=== PATIENT | male | born 2000 | race American Indian/Alaskan Native ===

== ENCOUNTER 2019-12-02 17:56 | Emergency (ER) | payer SELFPAY ==
[2019-12-02] MEDS ORDERED: TETRACAINE 0.5% OPHTH SOLN 4ML OU ONE (19:37)
[2019-12-02] MEDS ORDERED: FLUORESCEIN 1 MG STRIP OP ONE (19:38)
[2019-12-02] MEDS ORDERED: BALANCED SALT IRRIG (BSS) OPHTH SOLN 15 ML OU ONE (19:38)
--- NOTE | 2019-12-02 19:43 | Emergency Department Report ---
Eye Injury/Foreign Body - HPI Duration: Today Eye Location: Left Eye Symptoms: Eye Pain: Yes, Blurred Vision: Yes, Eye Redness: Yes, Photophobia: Yes Other History: 19-year-old -[place] male no acute distress nontoxic in appearance presents to the emergency room complaining of left eye pain that is a 7 out of 10. Patient states that he accidentally put glue in his eye. Patient states he went to grab eyedrops instead he grabbed glue. Patient states that he flushed his eye out with water. He reports this happened about 3 PM today. Patient aggravating factors are photophobia mild blurred vision. Alleviating factor nothing. Patient does have a past medical history of sickle cell disease. Patient reports he currently takes folate acid use he takes hydrocodone and ibuprofen but has been out of pain medication. Patient reports he does not have a primary care provider any further since he is no longer able to go to [facility]. Patient denies any known drug allergies. ED Review of Systems ROS: Stated complaint: GLUE IN EYE Other details as noted in HPI Comment: All other systems reviewed and negative Eyes: eye pain ED Past Medical Hx - Past Medical History Previous Medical History?: No - Surgical History Past Surgical History?: No - Social History Smoking Status: Never Smoker Substance Use Type: Marijuana - Medications Home Medications: Home Medications Medication Instructions Recorded Confirmed Last Taken Type Erythromycin [Erythromycin Ophth 1 strip OS QID 10 Days #1 tube 12/02/19 Unknown Rx Oint] HYDROcodone/APAP 5-325 [[place] 1 each PO Q6HR PRN #12 tablet 12/02/19 Unknown Rx 5/325] Ibuprofen [Motrin 600 MG tab] 600 mg PO Q8H PRN #30 tablet 12/02/19 Unknown Rx Eye Injury Exam - Exam General: Vital signs noted. No distress. Alert and acting appropriately. - Visual Acuity Left Eye Exam: Left Injection, Left EOMI, Left Fluorescein Uptake, Left Photophobia, Neither Abnormal Pupil, Neither Eye Foreign Body, Neither Lid Foreign Body, Neither Mucous Discharge, Neither Purulent Discharge ED Course Vital Signs 12/02/19 18:03 Temperature 98 F Pulse Rate 94 H Blood Pressure 113/57 ED Medical Decision Making - Medical Decision Making 19-year-old -[place] male no acute distress nontoxic in appearance presents to the emergency room complaining of left eye pain that is a 7 out of 10. Patient states that he accidentally put glue in his eye. Patient states he went to grab eyedrops instead he grabbed glue. Patient states that he flushed his eye out with water. He reports this happened about 3 PM today. Patient aggravating factors are photophobia mild blurred vision. Alleviating factor nothing. Patient does have a past medical history of sickle cell disease. Patient reports he currently takes folate acid use he takes hydrocodone and ibuprofen but has been out of pain medication. Patient reports he does not have a primary care provider any further since he is no longer able to go to [facility]. Patient denies any known drug allergies. Fluorescein exam was performed shows uptake. Patient be treated for corneal abrasion. Patient will be given Percocet and ibuprofen now for pain management. Patient to be discharged home on [place] and ibuprofen for a few days. Discussed with patient needs to follow-up with a manager inventory. Patient be discharged with erythromycin ophthalmic ointment 1 strip 4 times a day. Critical care attestation.: If time is entered above; I have spent that time in minutes in the direct care of this critically ill patient, excluding procedure time. ED Disposition Clinical Impression: Left corneal abrasion Disposition: [id number] TO HOME OR SELFCARE Is pt being admited?: No Does the pt Need Aspirin: No Condition: Stable Instructions: Corneal Abrasion (ED) Additional Instructions: Take pain medication as needed for pain. Please use erythromycin ophthalmic ointment as prescribed. It is very important for you to follow-up with an manager inventory as this can be serious and can lead to vision loss. Prescriptions: Erythromycin [Erythromycin Ophth Oint] 1 strip OS QID 10 Days #1 tube Ibuprofen [Motrin 600 MG tab] 600 mg PO Q8H PRN #30 tablet PRN Reason: Pain HYDROcodone/APAP 5-325 [[place] 5/325] 1 each PO Q6HR PRN #12 tablet PRN Reason: Pain Referrals: PRIMARY CAREMD [Primary Care Provider] - 3-5 Days RICARDO JAMIL MD [Staff Physician] - 3-5 Days [facility] [Provider Group] - 3-5 Days Forms: Work/School Release Form(ED)
[2019-12-02] MEDS ORDERED: IBUPROFEN 600 MG TAB PO ONE (19:53)
[2019-12-02] MEDS ORDERED: oxyCODONE /ACETAMINOPHEN 5-325MG TAB PO ONE (19:53)
[2019-12-02 20:00] VITALS: BP 108/54
== END 2019-12-02 20:26 | disposition home or self-care (01) ==
LOC: ED 17:56
DX: S05.02XA Injury of conjunctiva and corneal abrasion without foreign body, left eye, initial encounter (principal); X58.XXXA Exposure to other specified factors, initial encounter; Y93.89 Activity, other specified; Y92.89 Other specified places as the place of occurrence of the external cause; Y99.8 Other external cause status